=== PATIENT | female | born 1995 | race Caucasian/White ===

== ENCOUNTER → 2020-01-04 | Outpatient (REF) | payer OTHER, MEDICAID ==
[2020-01-04 13:56] LABS: BASO # 0.1 10^3/uL (0.0-0.2); BASO % 0.6 % (0.0-1.0); EOS # 0.4 10^3/uL (0.0-0.5); EOS % 3.8 % (0.0-3.0); HEMATOCRIT 42.1 % (36.0-47.0); HEMOGLOBIN 13.8 g/dl (12.0-15.5); LYMPH # 1.3 10^3/uL (1.5-5.0); LYMPH % 13.8 % (24.0-44.0); MEAN CORPUSCULAR HEMOGLOBIN 29.8 pg (27.0-33.0); MEAN CORPUSCULAR HGB CONC 32.8 g/dl (32.0-36.5); MEAN CORPUSCULAR VOLUME 90.9 fl (80.0-96.0); MONO # 0.7 10^3/uL (0.0-0.8); MONO % 7.3 % (0.0-5.0); NEUTROPHILS # 7.1 10^3/uL (1.5-8.5); NEUTROPHILS % 74.3 % (36.0-66.0); PLATELET COUNT, AUTOMATED 179 10^3/uL (150-450); RED BLOOD COUNT 4.63 10^6/uL (4.00-5.40); WHITE BLOOD COUNT 9.6 10^3/uL (4.0-10.0)
[2020-01-04 14:18] LABS: ALBUMIN 4.4 GM/DL (3.2-5.2); ALT/SGPT 19 U/L (12-78); BILIRUBIN,TOTAL 0.4 MG/DL (0.2-1.0); BLOOD UREA NITROGEN 9 MG/DL (7-18); CARBON DIOXIDE LEVEL 30 MEQ/L (21-32); CHLORIDE LEVEL 106 MEQ/L (98-107); CHOLESTEROL LEVEL 156 MG/DL (<200); CHOLESTEROL RISK RATIO 2.363 (<5); CREATININE FOR GFR 0.79 MG/DL (0.55-1.30); FREE T4 1.21 NG/DL (0.76-1.46); GLOMERULAR FILTRATION RATE > 60.0 (>60); GLUCOSE, FASTING 81 MG/DL (70-100); HDL CHOLESTEROL 66 MG/DL (>40); LDL CHOLESTEROL 78 MG/DL (<100); NON-HDL-C 90 MG/DL; SODIUM LEVEL 139 MEQ/L (136-145); TOTAL PROTEIN 7.4 GM/DL (6.4-8.2); TRIGLYCERIDES LEVEL 58 MG/DL (<150)
[2020-01-04 14:32] LABS: TOTAL 25(OH) VITAMIN D 29.2 NG/ML (30.0-100.0)
[2020-01-04 14:48] LABS: HEMOGLOBIN A1c 5.3 %
== END ==
LOC: M LAB REF 11:36
PROVIDERS: ATTEND Nurse Practitioner Family
DX: Z13.9 Encounter for screening, unspecified (principal); F41.8 Other specified anxiety disorders; F43.12 Post-traumatic stress disorder, chronic; F12.10 Cannabis abuse, uncomplicated; N94.6 Dysmenorrhea, unspecified

== ENCOUNTER → 2020-06-22 | Outpatient (REF) | payer OTHER ==
[2020-06-22 17:08] LABS: APPEARANCE, URINE CLOUDY (CLEAR); BACTERIA, URINE AUTO 1+ (NEGATIVE); BILIRUBIN, URINE AUTO NEGATIVE (NEGATIVE); BLOOD, URINE BLOOD 3+ (NEGATIVE); COLOR, URINE YELLOW (YELLOW); GLUCOSE, URINE (UA) AUTO NEGATIVE (NEGATIVE); KETONE, URINE AUTO NEGATIVE (NEGATIVE); LEUKOCYTE ESTERASE, URINE AUTO 1+ (NEGATIVE); MUCUS, URINE SMALL (NEGATIVE); NITRITE, URINE AUTO NEGATIVE (NEGATIVE); PROTEIN, URINE AUTO 2+ mg/dL (NEGATIVE); RBC, URINE AUTO TNTC /HPF (0-3); SPECIFIC GRAVITY URINE AUTO 1.016 (1.002-1.035); SQUAMOUS EPITHELIAL CELL UR AU 21 /HPF (0-6); UROBILINOGEN, URINE AUTO 0.2 mg/dL (0.0-2.0); WBC, URINE AUTO 52 /HPF (0-3)
== END ==
LOC: M LAB REF 16:10
PROVIDERS: ATTEND Physician Assistant Medical
DX: N39.0 Urinary tract infection, site not specified (principal)

== ENCOUNTER 2020-10-01 05:49 | Emergency (ER) | payer OTHER ==
[~2020-10-01] VITALS: Ht 165.1 cm; Wt 65.3 kg
[2020-10-01 05:50] VITALS: BP 129/74
[2020-10-01] MEDS ORDERED: VIIB40TA PO (06:00)
[2020-10-01] MEDS ORDERED: BUSP5TA PO (06:00)
[2020-10-01] MEDS ORDERED: ZALE10CA PO (06:00)
[2020-10-01] MEDS ORDERED: ABIL1TAB11 PO (06:00)
[2020-10-01] MEDS ORDERED: ATOM40CA16 PO (06:00)
[2020-10-01] MEDS ORDERED: KETOROLAC 30 MG/ML 1ML VIAL IV ONE (06:15)
[2020-10-01 06:43] LABS: BASO # 0.1 10^3/uL (0.0-0.2); BASO % 0.5 % (0.0-1.0); EOS # 0.4 10^3/uL (0.0-0.5); EOS % 3.3 % (0.0-3.0); HEMATOCRIT 42.9 % (36.0-47.0); HEMOGLOBIN 14.2 g/dl (12.0-15.5); LYMPH # 1.5 10^3/uL (1.5-5.0); LYMPH % 13.9 % (24.0-44.0); MEAN CORPUSCULAR HEMOGLOBIN 30.3 pg (27.0-33.0); MEAN CORPUSCULAR HGB CONC 33.1 g/dl (32.0-36.5); MEAN CORPUSCULAR VOLUME 91.5 fl (80.0-96.0); MONO # 0.7 10^3/uL (0.0-0.8); MONO % 6.1 % (2.0-8.0); NEUTROPHILS # 8.3 10^3/uL (1.5-8.5); NEUTROPHILS % 75.8 % (36.0-66.0); PLATELET COUNT, AUTOMATED 185 10^3/uL (150-450); RED BLOOD COUNT 4.69 10^6/uL (4.00-5.40)
[2020-10-01 07:07] LABS: ALBUMIN 4.2 GM/DL (3.2-5.2); ALT/SGPT 23 U/L (12-78); BILIRUBIN,DIRECT 0.2 MG/DL (0.0-0.2); BILIRUBIN,TOTAL 0.5 MG/DL (0.2-1.0); BLOOD UREA NITROGEN 11 MG/DL (7-18); CALCIUM LEVEL 8.9 MG/DL (8.5-10.1); CARBON DIOXIDE LEVEL 28 MEQ/L (21-32); CHLORIDE LEVEL 107 MEQ/L (98-107); CREATININE FOR GFR 0.76 MG/DL (0.55-1.30); GLOMERULAR FILTRATION RATE > 60.0 (>60); GLUCOSE, FASTING 88 MG/DL (70-100); LIPASE 87 U/L (73-393); POTASSIUM SERUM 3.7 MEQ/L (3.5-5.1); SODIUM LEVEL 141 MEQ/L (136-145); TOTAL PROTEIN 7.1 GM/DL (6.4-8.2)
[2020-10-01] MEDS ORDERED: NS 1,000 ML IV ONE (07:20)
--- NOTE | 2020-10-01 07:39 | REPVR ---
PROCEDURE INFORMATION: Exam: US Abdomen, Limited; Right Upper Quadrant Exam date and time: 10/01/2020 6:44 AM Age: 24 years old Clinical indication: Abdominal pain; Acute; Additional info: Ruq pain TECHNIQUE: Imaging protocol: US abdomen. Real time ultrasound with image documentation. Limited exam focused on the right upper quadrant. COMPARISON: CT ABD PELVIS WITH CONTRAST 09/26/2015 2:13 PM FINDINGS: Liver: The liver appears normal. Gallbladder: The gallbladder appears normal. The wall of the gallbladder measures 1.8 mm in thickness. Common bile duct: The common bile duct measures 3.5 mm in diameter which is normal. Pancreas: The pancreas is unremarkable. Right kidney: The right kidney is normal measuring 11.4 x 6.0 x 4.1 cm. IMPRESSION: 1. The liver appears normal. 2. The gallbladder appears normal. The wall of the gallbladder measures 1.8 mm in thickness. 3. The common bile duct measures 3.5 mm in diameter which is normal. Electronically signed by: Mick Curtis On 10/01/2020 07:39:15 AM
[2020-10-01 07:57] LABS: APPEARANCE, URINE HAZY (CLEAR); BACTERIA, URINE AUTO NEGATIVE (NEGATIVE); BILIRUBIN, URINE AUTO NEGATIVE (NEGATIVE); BLOOD, URINE BLOOD NEGATIVE (NEGATIVE); COLOR, URINE YELLOW (YELLOW); GLUCOSE, URINE (UA) AUTO NEGATIVE (NEGATIVE); KETONE, URINE AUTO NEGATIVE (NEGATIVE); LEUKOCYTE ESTERASE, URINE AUTO NEGATIVE (NEGATIVE); MUCUS, URINE SMALL (NEGATIVE); NITRITE, URINE AUTO NEGATIVE (NEGATIVE); PROTEIN, URINE AUTO NEGATIVE (NEGATIVE); RBC, URINE AUTO 1 /HPF (0-3); SPECIFIC GRAVITY URINE AUTO 1.016 (1.002-1.035); SQUAMOUS EPITHELIAL CELL UR AU 9 /HPF (0-6); UROBILINOGEN, URINE AUTO 0.2 mg/dL (0.0-2.0); WBC, URINE AUTO 2 /HPF (0-3)
[2020-10-01] MEDS ORDERED: GASTROGRAFIN SOLUTION 30ML PO SCH (08:00)
== END 2020-10-01 08:13 | disposition left against medical advice (07) ==
LOC: M ED 05:49
DX: R10.11 Right upper quadrant pain (principal); R10.31 Right lower quadrant pain; Z53.9 Procedure and treatment not carried out, unspecified reason; Z87.42 Personal history of other diseases of the female genital tract; F43.10 Post-traumatic stress disorder, unspecified; F60.3 Borderline personality disorder; Z88.1 Allergy status to other antibiotic agents; Z79.899 Other long term (current) drug therapy
CPT/HCPCS: 76705; 80048; 80076; 81001; 83690; 84702; 85025; 96361; 96374; 99283; J1885; Q9963

== ENCOUNTER 2021-03-27 14:09 | Inpatient (IN) | payer MEDICAID, OTHER ==
[~2021-03-27] VITALS: Ht 165.1 cm; Wt 56.1 kg
[~2021-03-27 14:09] MED LIST: ABIL1TAB11 PO; ATOM40CA16 PO; BUSP5TA PO; VIIB40TA PO; ZALE10CA PO
[2021-03-27] MEDS ORDERED: BUSP10TA PO (14:53)
[2021-03-27] MEDS ORDERED: ALPR0.5T3 PO (14:53)
[2021-03-27] MEDS ORDERED: ADDE10CA3 PO (14:54)
[2021-03-27 15:51] LABS: HEMATOCRIT 43.9 % (36.0-47.0); HEMOGLOBIN 14.6 g/dl (12.0-15.5); MEAN CORPUSCULAR HEMOGLOBIN 29.4 pg (27.0-33.0); MEAN CORPUSCULAR HGB CONC 33.3 g/dl (32.0-36.5); MEAN CORPUSCULAR VOLUME 88.3 fl (80.0-96.0); PLATELET COUNT, AUTOMATED 205 10^3/uL (150-450); RED BLOOD COUNT 4.97 10^6/uL (4.00-5.40)
[2021-03-27 16:13] LABS: HCG, SERUM QUALITATIVE NEGATIVE (NEGATIVE)
[2021-03-27 16:15] LABS: AMPHETAMINES LEVEL URINE POSITIVE (NEGATIVE); BARBITURATES URINE NEGATIVE (NEGATIVE); BENZODIAZEPINES URINE POSITIVE (NEGATIVE); CANNABINOIDS URINE POSITIVE (NEGATIVE); COCAINE METABOLITE URINE NEGATIVE (NEGATIVE); METHADONE URINE NEGATIVE (NEGATIVE); OPIATES URINE NEGATIVE (NEGATIVE); PHENCYCLIDINE URINE NEGATIVE (NEGATIVE)
[2021-03-27] MEDS ORDERED: TRET0.0540 TOP (16:17)
[2021-03-27] MEDS ORDERED: ADDE10TA PO (16:17)
[2021-03-27] MEDS ORDERED: MAGN200T PO (16:17)
[2021-03-27] MEDS ORDERED: HOME MED LIST COMPLETE! XX SCH (16:20)
[2021-03-27 16:22] LABS: ACETAMINOPHEN LEVEL < 2.0 UG/ML (10.0-30.0); ALBUMIN 4.2 GM/DL (3.2-5.2); ALT/SGPT 21 U/L (12-78); BILIRUBIN,DIRECT 0.1 MG/DL (0.0-0.2); BILIRUBIN,TOTAL 0.4 MG/DL (0.2-1.0); BLOOD UREA NITROGEN 7 MG/DL (7-18); CARBON DIOXIDE LEVEL 27 MEQ/L (21-32); CHLORIDE LEVEL 107 MEQ/L (98-107); CREATININE FOR GFR 0.86 MG/DL (0.55-1.30); ETHYL ALCOHOL (ETHANOL) < 0.003 % (0.000-0.010); GLOMERULAR FILTRATION RATE > 60.0 (>60); GLUCOSE, FASTING 115 MG/DL (70-100); POTASSIUM SERUM 3.9 MEQ/L (3.5-5.1); SALICYLATE LEVEL 2.7 MG/DL (5.0-30.0); SODIUM LEVEL 139 MEQ/L (136-145); THYROID STIMULATING HORMONE 0.795 uIU/ML (0.358-3.740); TOTAL PROTEIN 7.1 GM/DL (6.4-8.2)
[2021-03-27] MEDS ORDERED: MOM 30ML SUSPENSION UDC PO PRN (19:50)
[2021-03-27] MEDS ORDERED: ACETAMINOPHEN TAB 650MG DOSE (2X325MG) PO PRN (19:50)
[2021-03-27] MEDS ORDERED: MAALOX 30 ML SUSP *UDC PO PRN (19:50)
[2021-03-27] MEDS ORDERED: ALPRAZolam 0.5 MG TAB PO PRN (19:50)
[2021-03-27 20:37] LABS: RSV AMPLIFICATION NEGATIVE (NEGATIVE)
[2021-03-27 21:06] VITALS: BP 129/93
[2021-03-27] MEDS: traZODone 50 MG TAB PO PRN (21:34)
[2021-03-27] MEDS ORDERED: MIRTAZAPINE 15 MG TAB PO ONE (22:15)
[2021-03-28] MEDS ORDERED: ADDERALL 5 MG TAB PO SCH (09:00)
[2021-03-28] MEDS: busPIRone 10 MG TAB PO SCH (09:51)
--- NOTE | 2021-03-28 13:49 | HPEPDOC ---
[facility] Medical History & Physical Date of Admission Mar 27, 2021 Date of Service: Mar 28, 2021 History and Physical Chief complaint: Who presented to the emergency room because of thoughts of self-harm History of present illness: Patient is a 25-year-old female who presents to the emergency room with thoughts of self-harm patient was admitted to the inpatient mental health unit under the care of psychiatry. Hospitalist service was consulted for medical screening evaluation. Currently patient denies any headache but does report some nausea without vomiting. Denies any chest pain, short of breath, palpitations, abdominal pain, constipation, diarrhea, or urinary discomfort. She denies any recent fevers or chills. Patient reports that because of her history of anorexia. She is almost lost weight. Past Medical History: Anxiety / Depression Anorexia Borderline personality disorder Acne Past Surgical History: Patient reports that she had a right ovarian cyst that was removed Allergies: See below Medications: See below Family History: - Father with a history of alcoholism, drug addiction and mental health - Mother with a history of bulimia Social History: - Denies the use of alcohol, patient does report the use of tobacco and marijuana - Denies recent travel or sick contacts - Lives with older sister - Occupation; patient reports that she used to [employer] Review of Systems: 10 point review of systems complete, all negative otherwise stated in HPI Physical exam: - Vitals: BP [129/93], HR [65], RR [18], Sat [97%RA], Temp [97.5F] - General: Lying in bed, Speaking in full sentences, AAOx3 - HEENT: NC, AT, PERRLA - CVS: RRR, +S1S2, - Murmurs / rubs / gallops - Lungs: Fair air entry bilaterally, No appreciable wheezing / rales / rhonchi - Abdomen: Soft, Non-distended, Non-tender - Extremities: No lower extremity edema, No calf tenderness - Neuro: No focal motor or sensory deficit - Skin: No visible rashes Labs: See below Imaging: See below EKG: See below Assessment and Plan: Thoughts of self-harm - Hx of Anxiety / Depression / Borderline personality disorder - Patient has been admitted to the inpatient mental health unit under the care of psychiatry - Currently being managed by psychiatry Anorexia - Electrolytes drawn on 03/27 did not reveal any significant abnormalities - Will check phosphorus and magnesium levels - Will place dietary consult Acne - Patient reports that she takes Tretinoin at home DVT prophylaxis - Will continue with early ambulation Female boiler riveter was present for the duration of this history and physical examination Thank you for this consultation. Hospitalist service will now sign off; please reconsult as needed Vital Signs Vital Signs Date Time Temp Pulse Resp B/P (MAP) Pulse Ox O2 Delivery O2 Flow Rate FiO2 03/27/21 21:06 97.5 65 16 129/93 (105) 97 Room Air Laboratory Data Labs 24H Laboratory Tests 2 03/27/21 15:29: Nucleated Red Blood Cells % (auto) 0.0, Anion Gap 5L, Glomerular Filtration Rate > 60.0, Calcium Level 9.0, Total Bilirubin 0.4, Direct Bilirubin 0.1, Aspartate Amino Transf (AST/SGOT) 12, Alanine Aminotransferase (ALT/SGPT) 21, Alkaline Phosphatase 55, Total Protein 7.1, Albumin 4.2, Albumin/Globulin Ratio 1.4, Thyroid Stimulating Hormone (TSH) 0.795, Human Chorionic Gonadotropin, Qual NEGATIVE, Salicylates Level 2.7L, Urine Opiates Screen NEGATIVE, Urine Methadone Screen NEGATIVE, Acetaminophen Level < 2.0L, Urine Barbiturates Screen NEGATIVE, Urine Phencyclidine Screen NEGATIVE, Urine Amphetamines Screen POSITIVEH, Urine Benzodiazepines Screen POSITIVEH, Urine Cocaine Metabolite Screen NEGATIVE, Urine Cannabinoids Screen POSITIVEH, Ethyl Alcohol Level < 0.003 03/27/21 19:45: Coronavirus (COVID-19)(PCR) NEGATIVE, Influenza Type A (RT-PCR) NEGATIVE, Influenza Type B (RT-PCR) NEGATIVE, Respiratory Syncytial Virus (PCR) NEGATIVE CBC/BMP Laboratory Tests 03/27/21 15:29 Home Medications Scheduled Buspirone HCl (Buspirone HCl) 10 Mg Tablet, 20 MG PO DAILY Dextroamphetamine/Amphetamine (Adderall 10 mg Tablet) 10 Mg Tablet, 10 MG PO DAILY Tretinoin (Tretinoin) 20 Gm Cream..g., 1 APLCT TOP QPM APPLY TO THE FACE Vilazodone HCl (Viibryd) 40 Mg Tablet, 40 MG PO DAILY Scheduled PRN Alprazolam (Alprazolam) 0.5 Mg Tablet, 2 MG PO QHS PRN for SLEEP Magnesium (Magnesium) 200 Mg Tablet, 400 MG PO QHS PRN for SLEEP Allergies Coded Allergies: azithromycin (Verified Allergy, Intermediate, hives, 10/01/20) YONAS NIX MD Mar 28, 2021 13:49
[2021-03-28 14:09] LABS: MAGNESIUM LEVEL 2.2 MG/DL (1.8-2.4); PHOSPHORUS LEVEL 3.6 MG/DL (2.5-4.9)
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
[2021-03-28 17:40] VITALS: BP 137/86
[2021-03-28] MEDS ORDERED: OLANZapine ORAL DISINTEGRATING TAB 5MG PO ONE (20:50)
[2021-03-28] MEDS ORDERED: ENTER DRUG NAME HERE (PATIENT'S OWN MED) TOP SCH (21:00)
[2021-03-28] MEDS: traZODone 50 MG TAB PO PRN (21:10)
[2021-03-28] MEDS: BENZOYL PEROXIDE 5% TOP SCH (21:11)
[2021-03-28] MEDS: TRETINOIN 0.05% TOP SCH (21:11)
[2021-03-29] MEDS: busPIRone 10 MG TAB PO SCH (09:56)
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
[2021-03-29 18:37] VITALS: BP 130/71
[2021-03-29] MEDS: traZODone 50 MG TAB PO PRN (21:07)
[2021-03-29] MEDS: TRETINOIN 0.05% TOP SCH (21:08)
[2021-03-29] MEDS: BENZOYL PEROXIDE 5% TOP SCH (21:08)
[2021-03-30 06:30] VITALS: BP 139/87
[2021-03-30] MEDS: busPIRone 10 MG TAB PO SCH (09:26)
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
[2021-03-30 18:31] VITALS: BP 138/75
[2021-03-30] MEDS ORDERED: traZODone 100 MG TAB PO PRN (21:00)
[2021-03-30] MEDS: BENZOYL PEROXIDE 5% TOP SCH (21:09)
[2021-03-30] MEDS: TRETINOIN 0.05% TOP SCH (21:09)
[2021-03-30] MEDS ORDERED: diphenhydrAMINE 50MG CAP PO ONE (23:10)
[2021-03-31 06:55] VITALS: BP 115/69
[2021-03-31] MEDS: busPIRone 10 MG TAB PO SCH (09:18)
[2021-03-31] MEDS ORDERED: SENOKOT S TAB PO PRN (10:00)
[2021-03-31] MEDS ORDERED: MIRALAX *UNIT DOSE* 17GM PACKET PO PRN (10:00)
[2021-03-31] MEDS ORDERED: MOM 30ML SUSPENSION UDC PO PRN (10:00)
[2021-03-31] MEDS ORDERED: diphenhydrAMINE 50MG CAP PO PRN (10:25)
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
[2021-03-31 17:55] VITALS: BP 137/64
[2021-03-31] MEDS: TRETINOIN 0.05% TOP SCH (20:18)
[2021-03-31] MEDS: BENZOYL PEROXIDE 5% TOP SCH (20:18)
[2021-03-31] MEDS ORDERED: QUEtiapine FUMARATE 50MG TAB PO ONE (21:55)
[2021-04-01] MEDS: busPIRone 10 MG TAB PO SCH (08:18)
[2021-04-01] MEDS ORDERED: BUSP10TA PO (10:38)
[2021-04-01] MEDS ORDERED: DIPH50CA PO (10:38)
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
== END 2021-04-01 13:38 | disposition home or self-care (01) | DRG 752 ==
LOC: M ED 14:09 → M ED INP 19:48 → M PSY 21:06
PROVIDERS: ADMIT Psychiatry & Neurology Child & Adolescent Psychiatry; ATTEND Psychiatry & Neurology Child & Adolescent Psychiatry
DX: F60.3 Borderline personality disorder (principal); F50.9 Eating disorder, unspecified; R45.851 Suicidal ideations; F41.9 Anxiety disorder, unspecified; F12.90 Cannabis use, unspecified, uncomplicated; Z88.8 Allergy status to other drugs, medicaments and biological substances; L70.9 Acne, unspecified